=== PATIENT | female | born 1955 | race Caucasian/White ===

== ENCOUNTER 2016-12-21 17:43 | Emergency (ER) | payer OTHER ==
[~2016-12-21] VITALS: Ht 162.6 cm; Wt 113.6 kg
[~2016-12-21 17:43] MED LIST: CEPH-443 PO; TRAZ150T65 PO
--- NOTE | 2016-12-21 17:59 | ERA ---
ER Documentation Chief Complaint Date/Time DATE: 12/21/16 TIME: 17:53 Chief Complaint HPI This is a 61-year-old female who has a complicated presentation. Our nursing case supervisor had observed the patient sitting in the hospital lobby for the majority of the day. When he approached her, she stated that she was here to see her daughter. Eventually she gave the phone number of a daughter who states that the daughter she is looking for does not live in [facility]. The daughter she is looking for is a strange. We were able to speak to the local daughter. She states that the patient has a history of schizophrenia, borderline dementia and is gravely disabled. She has a home health care provider. She eloped from home yesterday evening and a cab and has been eloping frequently recently. She is concerned that her mother is gravely disabled and cannot care for herself. She may need to be in a closed facility. The patient herself does describe hallucinations, she states that she hears voices of relatives. She states "I do not want to be admitted ". However , she cannot further provide history. She denies any suicidal thoughts. No chest pain or shortness of breath. ROS All systems reviewed and are negative except as per history of present illness. Though limited given past medical history Medications Home Meds Active Scripts Cephalexin* (Keflex*) 500 Mg Capsule, 500 MG PO TID for 7 Days, CAP Prov:ORALIA PURCELL MD 07/05/16 Reported Medications Trazodone Hcl* (Trazodone Hcl*) 150 Mg Tablet, 150 MG PO QHS, #30 TAB 07/05/16 Allergies Allergies: Coded Allergies: No Known Allergy (Unverified , 07/05/16) PMhx/Soc History of Surgery: No Anesthesia Reaction: No Hx Neurological Disorder: No Hx Respiratory Disorders: No Hx Cardiac Disorders: No Hx Psychiatric Problems: Yes Hx Miscellaneous Medical Probl: No Hx Alcohol Use: No Hx Substance Use: No FmHx Family History: No diabetes Physical Exam Vitals Vital Signs Date Time Temp Pulse Resp B/P Pulse Ox O2 Delivery O2 Flow Rate FiO2 12/21/16 18:03 97.9 75 18 117/65 98 Physical Exam General: Well developed, well nourished, no acute distress Head: Normocephalic, atraumatic. Eyes: Pupils equally reactive, EOM intact ENT: Moist mucous membranes Neck: Supple, no lymphadenopathy Respiratory: Lungs clear bilaterally, no distress Cardiovascular: RRR, no murmurs, rubs, or gallops Abdominal: Soft, non-tender, non-distended, no peritoneal signs : Deferred MSK: No edema, no unilateral swelling, 5/5 strength Neurologic: Alert and oriented to person and place, moving all extremities, normal speech, no focal weakness, no cerebellar signs Skin: No rash Psych: Normal mood, disorganized thought process,, no suicidal ideation Result Diagram: 12/21/16 1800 12/21/16 1800 Results 24 hrs Laboratory Tests Test 12/21/16 18:00 White Blood Count 7.910^3/ul Red Blood Count 4.1410^6/ul Hemoglobin 13.7g/dl Hematocrit 41.1% Mean Corpuscular Volume 99.3fl Mean Corpuscular Hemoglobin 33.1pg Mean Corpuscular Hemoglobin Concent 33.3g/dl Red Cell Distribution Width 12.8% Platelet Count 63360^3/UL Mean Platelet Volume 11.9fl Neutrophils % 64.7% Lymphocytes % 27.8% Monocytes % 6.0% Eosinophils % 0.8% Basophils % 0.4% Nucleated Red Blood Cells % 0.0/100WBC Neutrophils # 5.110^3/ul Lymphocytes # 2.210^3/ul Monocytes # 0.510^3/ul Eosinophils # 0.110^3/ul Basophils # 0.010^3/ul Nucleated Red Blood Cells # 0.010^3/ul Sodium Level 145mmol/L Potassium Level 3.3mmol/L Chloride Level 107mmol/L Carbon Dioxide Level 26mmol/L Anion Gap 15 Blood Urea Nitrogen 11mg/dl Creatinine 0.77mg/dl Glucose Level 157mg/dl Calcium Level 9.6mg/dl Total Bilirubin 0.1mg/dl Direct Bilirubin 0.00mg/dl Indirect Bilirubin 0.1mg/dl Aspartate Amino Transf (AST/SGOT) 21IU/L Alanine Aminotransferase (ALT/SGPT) 25IU/L Alkaline Phosphatase 62IU/L Total Protein 7.3g/dl Albumin 4.3g/dl Globulin 3.00g/dl Albumin/Globulin Ratio 1.43 Ethyl Alcohol Level < 10.0mg/dl Current Medications Medications (Trade) Dose Ordered Sig/Estuardo Route PRN Reason Start Time Stop Time Status Last Admin Dose Admin Haloperidol (Haldol) 2 mg ONCE ONCE IV 12/21/16 18:00 12/21/16 18:01 DC 12/21/16 18:49 Lorazepam (Ativan) 1 mg ONCE ONCE PO 12/21/16 19:00 12/21/16 19:01 DC 12/21/16 19:33 Procedures/MDM LAB INTERPRETATION: No leukocytosis, normal electrolytes, normal alcohol. Urinalysis and drug screen pending. MEDICAL DECISION MAKING: The patient's presentation is consistent with underlying psychiatric illness and likely exacerbation of this illness and/or psychosis. It is clearly apparent based on the description from the patient's daughter that the patient is gravely disabled. The patient's underlying dementia and schizophrenia are likely playing a role. The patient does not have a clear reason to be at the hospital today and appears to have eloped from home. She cannot give an adequate history and I do not believe she has capacity to make decisions even though she states "I do not want to be admitted today ". Unfortunately, for this reason, I do believe the patient would benefit from subtle Haldol, close observation with a 1:1 sitter and transfer to [facility] for psychiatric placement. I have a much lower clinical concern for delirium or acute organic pathology such as toxicologic, metabolic, ischemic, intracranial hemorrhage, infectious process. However, we must rule this out prior to relying a diagnosis of underlying psychiatric illness. The patient's workup will include medical screening examination, laboratory analysis, and diagnostic imaging such as EKG, chest x-ray or CT brain as indicated. If the patient's medical examination and laboratory analysis do not reveal acute organic pathology the patient will be medically cleared for psychiatric evaluation. ER COURSE: The patient's laboratory analysis, diagnostic imaging do not suggest an acute organic pathology. At this time I believe the patient's presentation is very consistent with underlying psychiatric illness. The patient is medically cleared for psychiatric evaluation. Patient requested did not have an injection. She was given 1 mg of p.o. Ativan. This is improved her anxiolysis. Haldol avoided at this time. I kept the patient and/or family informed of laboratory and diagnostic imaging results throughout the emergency room course. DISPOSITION PLAN: Transfer to [facility] Accepting care team and consultations: I discussed the current laboratory data, diagnostic imaging and emergency care provided. Admitting team: I was able to speak to Dr. Tellez at [facility]. He gave me authorization number of [id number] Admitting team indication: Insurance directed Patient is currently pending [place] placement Departure Diagnosis: Primary Impression: Gravely disabled Condition: Stable ROSEANN DOUGHERTY MD Dec 21, 2016 17:59
[2016-12-21] MEDS ORDERED: HALOPERIDOL 5 MG INJ IV ONE (18:00)
[2016-12-21 18:03] VITALS: Ht 162.6 cm; Wt 113.6 kg
[2016-12-21 18:09] LABS: ADD SCAN DIFF NO
[2016-12-21 18:11] LABS: BASOPHILS % 0.4 % (0.0-2.0); EOSINOPHILS # 0.1 10^3/ul (0.0-0.5); EOSINOPHILS % 0.8 % (0.0-7.0); HEMATOCRIT 41.1 % (37.0-47.0); HEMOGLOBIN 13.7 g/dl (12.0-16.0); LYMPHOCYTES # 2.2 10^3/ul (0.8-2.9); LYMPHOCYTES % 27.8 % (15.0-51.0); MEAN CORPUSCULAR HEMOGLOBIN 33.1 pg (29.0-33.0); MEAN CORPUSCULAR HGB CONC 33.3 g/dl (32.0-37.0); MEAN CORPUSCULAR VOLUME 99.3 fl (82.0-101.0); MEAN PLATELET VOLUME 11.9 fl (7.4-10.4); MONOCYTE # 0.5 10^3/ul (0.3-0.9); NEUTROPHIL # 5.1 10^3/ul (1.6-7.5); NEUTROPHILS % 64.7 % (39.0-77.0); PLATELET COUNT 193 10^3/UL (140-415); RED BLOOD COUNT 4.14 10^6/ul (4.20-5.40); RED CELL DISTRIBUTION WIDTH 12.8 % (11.5-14.5); WHITE BLOOD COUNT 7.9 10^3/ul (4.8-10.8)
[2016-12-21 18:25] LABS: ALBUMIN 4.3 g/dl (3.3-4.9); CHLORIDE 107 mmol/L (97-110); SODIUM 145 mmol/L (135-144)
[2016-12-21 18:26] LABS: POTASSIUM 3.3 mmol/L (3.5-5.1)
[2016-12-21 18:28] LABS: ALANINE AMINOTRANSFERASE 25 IU/L (13-69); ALBUMIN/GLOBULIN RATIO 1.43; ALKALINE PHOSPHATASE 62 IU/L (42-121); ANION GAP 15 (8-16); ASPARTATE AMINO TRANSFERASE 21 IU/L (15-46); BILIRUBIN,INDIRECT 0.1 mg/dl (0-1.1); BILIRUBIN,TOTAL 0.1 mg/dl (0.2-1.3); BLOOD UREA NITROGEN 11 mg/dl (7-20); CARBON DIOXIDE 26 mmol/L (21-31); CREATININE 0.77 mg/dl (0.44-1.00); GLUCOSE 157 mg/dl (70-220); TOTAL PROTEIN 7.3 g/dl (6.1-8.1)
[2016-12-21 18:29] LABS: CALCIUM 9.6 mg/dl (8.4-10.2)
[2016-12-21 18:45] LABS: ETHANOL < 10.0 mg/dl
[2016-12-21] MEDS ORDERED: LORAZEPAM 1 MG TAB PO ONE (19:00)
[2016-12-21 19:48] LABS: ADD UMIC YES; URINE BILIRUBIN (Dip) NEGATIVE (NEGATIVE); URINE BLOOD (Dip) NEGATIVE (NEGATIVE); URINE COLOR LT. YELLOW (YELLOW); URINE GLUCOSE (Dip) NEGATIVE (NEGATIVE); URINE KETONES (Dip) NEGATIVE (NEGATIVE); URINE LEUKOCYTE ESTERASE (Dip) NEGATIVE (NEGATIVE); URINE NITRITE (Dip) NEGATIVE (NEGATIVE); URINE TOTAL PROTEIN (Dip) NEGATIVE (NEGATIVE); URINE UROBILINOGEN (Dip) 0.2 E.U./dL (0.1-1.0)
[2016-12-21 20:23] LABS: SQUAMOUS EPITHELIAL CELL,UR FEW; URINE RBCS NONE SEEN /HPF (0)
[2016-12-21 20:39] LABS: BARBITURATES Negative (NEGATIVE); BENZODIAZEPINES Negative (NEGATIVE); CANNABINOIDS Negative (NEGATIVE); COCAINE Negative (NEGATIVE); OPIATES Negative (NEGATIVE)
[2016-12-21] MEDS ORDERED: ARIP10TA13 PO (21:09)
[2016-12-21] MEDS ORDERED: POTA10TA98 PO (21:10)
[2016-12-21] MEDS ORDERED: FLUO20CA22 PO (21:13)
[2016-12-21] MEDS ORDERED: TOPI-44 PO (21:14)
[2016-12-21] MEDS ORDERED: BENZ0.5T3 PO (21:15)
[2016-12-22 12:53] VITALS: BP 150/76; PULSE 71; RESP 16; TEMP 98.1
== END 2016-12-22 13:20 ==
LOC: E/R 17:43
DX: F79 Unspecified intellectual disabilities (principal); R40.2252 Coma scale, best verbal response, oriented, at arrival to emergency department; R40.2142 Coma scale, eyes open, spontaneous, at arrival to emergency department; R40.2362 Coma scale, best motor response, obeys commands, at arrival to emergency department
CPT/HCPCS: 80053; 80306; 80307; 81001; 85025; J1630; 36415; 81003; 96374